=== PATIENT | female | born 1990 | race Caucasian/White ===

== ENCOUNTER 2023-01-03 02:20 | Observation (INO) | payer MEDICAID, OTHER ==
[2023-01-03] MEDS ORDERED: Carboprost 250 MCG/ML AMP ONE (03:46)
[2023-01-03 03:51] LABS: #Basophils 0.1 10x3/uL (0.0-0.2); #Eosinphils 0.3 10x3/uL (0.0-0.5); #Monocytes 0.9 10x3/uL (0.0-1.1); %Basophils 0.5 % (0.0-2.0); %Eosinophils 1.9 % (0.0-6.0); %Lymphocytes 16.3 % (18.0-47.0); %Monocytes 6.1 % (0.0-10.0); %Neutrophils 73.2 % (40.0-75.0); Mean Corpuscular HGB CONC 34.2 g/dL (32.0-36.0); Mean Corpuscular Hemoglobin 29.5 pg (27.0-33.0); Mean Corpuscular Volume 86.2 fl (81.6-98.3); Mean Platelet Volume 10.1 fl (7.4-10.4); Platelet Count 263 10x3/uL (150-450); RBC Distribution Width 13.3 % (11.5-14.5); Red Blood Cell (RBC) Count 4.41 10x6/uL (3.90-5.03)
[2023-01-03 04:06] LABS: ALT (SGPT) 17 U/L (8-55); AST (SGOT) 15 U/L (5-34); Albumin 3.6 g/dL (3.5-5.0); Alkaline Phosphatase 58 U/L (40-110); Anion Gap 14 mmol/L (10-20); BUN (Urea Nitrogen) 11 mg/dL (7.0-18.7); Bilirubin, Total 0.3 mg/dL (0.2-1.2); Calc. Creatinine Clearance 0 mL/min (70-130); Calcium 8.8 mg/dL (7.8-10.44); Carbon Dioxide 23 mmol/L (22-29); Chloride 103 mmol/L (98-107); Estimated GFR 122; Glucose 94 mg/dL (70-105); Potassium 3.6 mmol/L (3.5-5.1); Protein, Total 6.6 g/dL (6.0-8.3); Sodium 136 mmol/L (136-145)
[2023-01-03] MEDS ORDERED: Diphenoxylate HCl/Atropine Tablet ONE (04:07)
[2023-01-03 04:58] VITALS: BMI 30.6
[2023-01-03] MEDS ORDERED: Ondansetron PF 4 MG/2 ML Vial IVP PRN (05:07)
[2023-01-03] MEDS ORDERED: Milk Of Magnesia 30 ML UDCUP PO PRN (05:07)
[2023-01-03] MEDS ORDERED: Promethazine HCl 25 MG/ML VIAL IM PRN (05:07)
[2023-01-03] MEDS ORDERED: Bisacodyl 10 MG SUPP PR PRN (05:07)
[2023-01-03] MEDS ORDERED: fentaNYL 50 mcg/mL 1 mL Vial SLOW IVP PRN (05:07)
[2023-01-03] MEDS ORDERED: Boostrix 0.5 ML (Tdap) VIAL (>/=7 yrs of age) IM ONE (05:07)
[2023-01-03] MEDS ORDERED: Acetaminophen 500 MG TAB PO PRN (05:07)
[2023-01-03] MEDS ORDERED: hydrALAZINE 20 MG/ML VIAL SLOW IVP PRN ×2 (05:07)
[2023-01-03] MEDS ORDERED: fentaNYL 50 mcg/mL 1 mL Vial ONE (05:14)
[2023-01-03] MEDS ORDERED: diphenhydrAMINE 50 MG/ML VIAL ONE (05:14)
[2023-01-03] MEDS ORDERED: NS w/ Oxytocin 30 units 500 ML IV SCH (05:15)
[2023-01-03] MEDS ORDERED: diphenhydrAMINE 50 MG/ML VIAL IVP SCH (05:15)
[2023-01-03] MEDS ORDERED: Ibuprofen 800 MG TAB PO SCH (06:00)
[2023-01-03 06:39] LABS: Mean Corpuscular HGB CONC 34.3 g/dL (32.0-36.0); Mean Corpuscular Hemoglobin 29.7 pg (27.0-33.0); Mean Corpuscular Volume 86.5 fl (81.6-98.3); Platelet Count 248 10x3/uL (150-450); RBC Distribution Width 13.4 % (11.5-14.5); Red Blood Cell (RBC) Count 4.38 10x6/uL (3.90-5.03); White Blood Cell (WBC) Count 18.8 10x3/uL (3.5-10.5)
[2023-01-03 07:15] LABS: HBSAg Index 0.22 S/CO (0-0.99); Hep B Surf Ag - L&D Non-Reactive S/CO (NonReactive)
[2023-01-03] MEDS ORDERED: HumaLOG 300 UNITS/3 ML VIAL SC SCH (07:30)
[2023-01-03 07:45] LABS: Syphilis Antibody Nonreactive (Nonreactive); Syphilis Antibody Index 0.08 S/CO (<1.00 Non-Reactive)
[2023-01-03] MEDS ORDERED: Ferrous Sulfate 325 MG TAB PO SCH (08:00)
[2023-01-03] MEDS ORDERED: Lantus 1000 UNITS/10 ML VIAL SC SCH (09:00)
[2023-01-03] MEDS ORDERED: FLUoxetine HCl 20 MG CAP PO SCH (09:00)
[2023-01-03] MEDS ORDERED: Docusate 100 MG CAP PO SCH (09:00)
[2023-01-05 17:38] LABS: HBSAB Concentration 24.67 mIU/mL; Hep B Surf AB Reactive (NonReactive)
== END 2023-01-03 11:10 | disposition home or self-care (01) ==
LOC: CSHERS 02:20 → CSHLD/OP 04:32 → CSHLD 05:17
PROVIDERS: ADMIT Obstetrics & Gynecology; ATTEND Obstetrics & Gynecology
DX: O99.891 Other specified diseases and conditions complicating pregnancy (principal); R10.9 Unspecified abdominal pain; O24.012 Pre-existing type 1 diabetes mellitus, in pregnancy, second trimester; O99.323 Drug use complicating pregnancy, third trimester; F15.90 Other stimulant use, unspecified, uncomplicated; Z72.0 Tobacco use; Z3A.17 17 weeks gestation of pregnancy
CPT/HCPCS: 36415; 36416; 76857; 80053; 85025; 86706; 86762; 86780; 86850; 86900; 86901; 87340; 88300; 88305; 96374; 96375; G0378; J1200; J1815; J3010; J3490